=== PATIENT | male | born 1930 | race Caucasian/White ===

== ENCOUNTER 2016-04-12 11:03 | Emergency (ER) | payer MEDICARE, OTHER ==
[2016-04-12] MEDS ORDERED: MECLIZINE 12.5 MG TAB As Ordered ONE (12:06)
[2016-04-12 12:26] LABS: BASO % 0.5 % (0.0-1.0); EOS # 0.3 K/mm3 (0.0-0.50); EOS % 5.7 % (0.0-3.0); LARGE UNSTAINED CELL # 0.3 K/mm3 (0.0-0.4); LARGE UNSTAINED CELL % 4.7 % (0.0-4.0); LYMPH # 0.6 K/mm3 (1.5-4.5); LYMPH % 9.4 % (24.0-44.0); MEAN CORPUSCULAR HEMOGLOBIN 31.4 pg (27.0-33.0); MEAN CORPUSCULAR HGB CONC 33.6 g/dl (32.0-36.5); MEAN CORPUSCULAR VOLUME 93.4 fl (80.0-96.0); MONO # 0.5 K/mm3 (0.0-0.8); MONO % 8.3 % (0.0-5.0); NEUTROPHILS # 4.2 K/mm3 (1.8-7.7); NEUTROPHILS % 71.4 % (36.0-66.0); PLATELET COUNT, AUTOMATED 278 k/mm3 (150-450); RED CELL DISTRIBUTION WIDTH 12.6 % (11.5-14.5); WHITE BLOOD COUNT 5.8 K/mm3 (4.0-10.0)
[2016-04-12 12:31] LABS: ANION GAP 8 MEQ/L (8-16); BLOOD UREA NITROGEN 14 MG/DL (7-18); CALCIUM LEVEL 9.1 MG/DL (8.8-10.2); CARBON DIOXIDE LEVEL 27 MEQ/L (21-32); CHLORIDE LEVEL 108 MEQ/L (98-107); CREATININE FOR GFR 0.85 MG/DL (0.70-1.30); GLOMERULAR FILTRATION RATE > 60.0 (>35); GLUCOSE, FASTING 102 MG/DL (83-110); POTASSIUM SERUM 3.8 MEQ/L (3.5-5.1); SODIUM LEVEL 143 MEQ/L (136-145)
--- NOTE | 2016-04-12 14:41 | REP ---
CT brain without contrast 04/12/2016 Indication: Dizziness Comparison: None Findings: There is mild generalized cerebral volume loss. Small amount of periventricular and subcortical white matter hypodensities are present bilaterally consistent with chronic small vessel ischemic disease. There is no intracranial hemorrhage or extra-axial fluid collection. There is no midline shift or mass effect. The skull is without fracture. There are moderate bilateral carotid siphon calcifications and moderate calcification in distal left vertebral artery . Visualized portions of paranasal sinuses and mastoid sinuses are clear Impression 1. Mild generalized cerebral volume loss with mild chronic small vessel ischemic disease. No acute intracranial pathology or hemorrhage 2. Moderate bilateral carotid siphon calcifications, and moderate calcification in distal left vertebral artery Signed by Mel Carlson MD 04/12/2016 12:29 P
--- NOTE | 2016-04-12 15:58 | EDDOCDS ---
Nurse's Notes [facility] Name: Scott Child Age: 85 yrs Sex: Male : 1930 Arrival Date: 04/12/2016 Time: 11:03 Bed 19 Private MD: OLIVIA Prince Diagnosis: Other peripheral vertigo Presentation: 04/12 11:16 Presenting complaint: Patient states: felt dizzy during nite last night - states that j room was spinning around him. today feels SOB - denies chest pain. + cough. still feels dizzy. has hx of anxiety - states different than usual anxiety attack. Adult Sepsis Screening: The patient does not have new or worsening altered mentation. Patient's respiratory rate is less than 22. Systolic blood pressure is greater than 100. Patient has a qSOFA score of 0- Negative Sepsis Screen. Suicide/Homicide risk assessment- the patient denies having any suicidal and/or homicidal ideations and does not present with any other emotional, behavioral or mental health complaints. Status: Patient is not a counseling services manager or dependent. Transition of care: patient was not received from another setting of care. Red Flag criteria, patient assessed and taken directly to a bed. 11:16 Acuity: MARIA FERNANDA Level 3 [facility] 11:16 Method Of Arrival: Walkin/Carried/Asstd [facility] Triage Assessment: 11:20 General: Appears in no apparent distress, comfortable, Behavior is anxious. Pain: bcj Denies pain. Neurological: Level of Consciousness is awake, alert, Oriented to person, place, time. Historical: - Allergies: IV Dye; - Home Meds: 1. amlodipine 5 mg Oral tab 1 tab once daily 2. aspirin 81 mg Oral chew 1 tab once daily 3. lovazepam 0.5mg twice a day 4. paroxetine HCl 40 mg Oral tab 1 tab once daily 5. multivitamin Oral tab 1 tablet daily - PMHx: Anxiety; B-cell lymphoma; Hypertension; - PSHx: lymph node resection; Cataract Surgery- Bilateral; Hernia repair- Left inguinal; Tonsillectomy; Adenoidectomy; - Social history: Smoking status: Patient states former smoker of tobacco. No barriers to communication noted, The patient speaks fluent Syriac, Speaks appropriately for age. - Family history: Not pertinent. - : The pt / caregiver states he / she is not on anticoagulants. Home medication list is obtained from the patient. - Exposure Risk Screening:: None identified. Screenin:00 Screening information is obtained from the patient. Fall risk: No risks identified. hs1 Assistance ADL's: requires no assistance with activities of daily living. Abuse/DV Screen: The patient / caregiver reports he/she is: not in a situation that causes fear, pain or injury. Nutritional screening: No deficits noted. Advance Directives: There is no active DNR order. home support is adequate. Assessment: 12:00 General: Appears in no apparent distress, comfortable, Behavior is appropriate for age, hs1 cooperative. Pain: Denies pain. Neurological: Level of Consciousness is awake, alert, obeys commands, Oriented to person, place, time, Cold Food Packer are equal bilaterally Moves all extremities. Speech is normal, Facial symmetry appears normal. Cardiovascular: Rhythm is sinus rhythm. Respiratory: Airway is patent Respiratory effort is even, unlabored. GI: No deficits noted. Derm: Skin is pink, warm & dry. normal. 13:31 General: Appears in no apparent distress, comfortable, Behavior is appropriate for age, hs1 cooperative. Pain: Denies pain. Neurological: Level of Consciousness is awake, alert, obeys commands, Oriented to person, place, time, Cold Food Packer are equal bilaterally Moves all extremities. Speech is normal, Facial symmetry appears normal, Reports ringing in ears. . 14:28 General: Appears in no apparent distress, comfortable, Behavior is appropriate for age, hs1 cooperative, eating lunch at present. Pt aware of plan to eat and then ambulate to see if he is able to tolerate it. . 15:25 General: Appears in no apparent distress, comfortable, Behavior is appropriate for age, jmb cooperative, Patient laying on stretcher with at bedside., NO voiced complaints at this time. . Neurological: Level of Consciousness is awake, alert, obeys commands, Oriented to person, place, time, Cold Food Packer are equal bilaterally Speech is normal, Facial symmetry appears normal, Facial symmetry: tongue is midline. Cardiovascular: Capillary refill < 3 seconds Heart tones present Pulses are all present. Rhythm is sinus rhythm No ectopy. Respiratory: Airway is patent Respiratory effort is even, unlabored, Respiratory pattern is regular, symmetrical, Breath sounds with crackles in left posterior lower lobe and right posterior lower lobe. GI: Abdomen is non- distended Bowel sounds present X 4 quads. Abd is soft X 4 quads. Derm: Skin is pink, warm & dry. Musculoskeletal: Range of motion intact in all extremities. 15:50 General: Patient ambulated to patient, gait steady. Patient denies vertigo at this b time. Informed Dr. Jackson pf patient ambulation. Dr. Jackson stated that patient can be discharged. . 15:55 General: Patient instructed on discharge instructions. Patient asked if there were any [facility] questions regarding discharge, patient stated no. IV discontinued per hospital policy. Patient signed discharge instructions. Patient discharged in stable condition. . Vital Signs: 11:05 BP 154 / 81; Pulse 72; Resp 18; Temp 97.3(O); Pulse Ox 96% ; Weight 81.65 kg (R); cmb Height 5 ft. 4 in. (162.56 cm) (R); Pain 0/10; 11:26 BP 156 / 72 (auto/); hs1 11:28 Pulse 70 MON; Pulse Ox 95% ; hs1 11:55 Pulse 68 MON; Pulse Ox 98% ; hs1 11:56 BP 151 / 72 (auto/); hs1 12:26 BP 150 / 68 (auto/); hs1 12:26 Pulse 64 MON; Resp 18; Pulse Ox 95% ; hs1 12:56 BP 153 / 74 (auto/); jmb 12:56 Pulse 70 MON; Pulse Ox 94% ; jmb 13:26 BP 152 / 77 (auto/); jmb 13:26 Pulse 66 MON; Pulse Ox 96% ; jmb 13:56 BP 151 / 74 (auto/); jmb 13:56 Pulse 68 MON; Pulse Ox 98% ; jmb 14:26 BP 168 / 74 (auto/); jmb 14:26 Pulse 68 MON; Pulse Ox 94% ; jmb 14:56 BP 163 / 72 (auto/); jmb 14:56 Pulse 66 MON; Pulse Ox 94% ; jmb 14:56 Resp 18; Temp 98.2(O); Pain 0/10; jmb 11:05 Body Mass Index 30.90 (81.65 kg, 162.56 cm) b Vitals: 11:05 Log In Time: April 12, 2016 at 11:02. cmb 11:05 RN notified that patient meets Red Flag criteria. cmb ED Course: 11:04 Patient visited by Lilly Coto. cmb 11:04 Suresh [facility] is Private Physician. cmb 11:04 Patient moved to Waiting cmb 11:09 RN notified that patient meets Red Flag criteria. cmb 11:16 Patient moved to 19 [facility] 11:19 Triage Initiated [facility] 11:21 Patient visited by Roe Dupree, SANT[place]AG[place]. [facility] 11:33 Patient visited by Hemal Rabago. dem1 11:33 EKG done. (by ED staff). Reviewed by Kailyn Verdugo MD. dem1 11:37 Kailyn Verdugo MD is Attending Physician. sd1 11:37 Patient visited by Kailyn Verdugo MD. sd1 12:00 Inserted saline lock: 20 gauge in left antecubital area and blood collected. The hs1 patient tolerated the procedure well. 12:01 The patient / caregiver is instructed regarding the plan of care and ED course. hs1 12:02 B-Type Natiuretic Peptide Sent. hs1 12:02 Basic Metabolic Profile Sent. hs1 12:02 CBC with Diff Sent. hs1 12:02 Cardiac Injury Profile Sent. hs1 12:02 Troponin Sent. hs1 12:08 [facility] Payment Agreement was scanned into [employer] and attached to record. mm15 12:10 Patient visited by Mamta Molina RN. hs1 12:46 Patient visited by Dedra Black, AGATA. ct3 13:18 Patient visited by Mamta Molina RN. hs1 14:24 Patient visited by Mamta Molina RN. hs1 14:56 Discontinued lock intact, bleeding controlled, pressure dressing applied, No jmb redness/swelling at site. No procedures done that require assistance. 15:08 CT Head Without Contrast Returned. EDMS 15:21 Suresh [facility] is Referral Physician. sd1 15:26 Patient visited by Alejandro Ledezma RN. jmb Administered Medications: 12:10 Drug: Meclizine 50 mg [meclizine 12.5 mg tablet (4 tabs)] Route: PO; hs1 Order Results: Lab Order: B-Type Natiuretic Peptide; SPEC'M 04/12/16 11:57 Test: BRAIN NATRIURETIC PEPTIDE; Value: 46.1; Range: <100; Units: PG/ML; Status: F Lab Order: Basic Metabolic Profile; SPEC04/12/16 11:57 Test: GLUCOSE, FASTING; Value: 102; Range: 83-110; Units: MG/DL; Status: F Test: BLOOD UREA NITROGEN; Value: 14; Range: 7-18; Units: MG/DL; Status: F Test: CREATININE FOR GFR; Value: 0.85; Range: 0.70-1.30; Units: MG/DL; Status: F Test: GLOMERULAR FILTRATION RATE; Value: > 60.0; Range: >35; Status: F Test: SODIUM LEVEL; Value: 143; Range: 136-145; Units: MEQ/L; Status: F Test: POTASSIUM SERUM; Value: 3.8; Range: 3.5-5.1; Units: MEQ/L; Status: F Test: CHLORIDE LEVEL; Value: 108; Range: 98-107; Abnormal: Above high normal; Units: MEQ/L; Status: F Test: CARBON DIOXIDE LEVEL; Value: 27; Range: 21-32; Units: MEQ/L; Status: F Test: ANION GAP; Value: 8; Range: 8-16; Units: MEQ/L; Status: F Test: CALCIUM LEVEL; Value: 9.1; Range: 8.8-10.2; Units: MG/DL; Status: F Test Note: ; Units are mL/min/1.73 m2 Chronic Kidney Disease Staging per NKF: Stage I & II GFR >=60 Normal to Mildly Decreased Stage III GFR 30-59 Moderately Decreased Stage IV GFR 15-29 Severely Decreased Stage V GFR <15 Very Little GFR Left ESRD GFR <15 on CLOTH HANDLER Lab Order: CBC with Diff; SPEC04/12/16 11:57 Test: WHITE BLOOD COUNT; Value: 5.8; Range: 4.0-10.0; Units: K/mm3; Status: F Test: RED BLOOD COUNT; Value: 4.47; Range: 4.30-6.10; Units: M/mm3; Status: F Test: HEMOGLOBIN; Value: 14.0; Range: 14.0-18.0; Units: g/dl; Status: F Test: HEMATOCRIT; Value: 41.7; Range: 42.0-52.0; Abnormal: Below low normal; Units: %; Status: F Test: MEAN CORPUSCULAR VOLUME; Value: 93.4; Range: 80.0-96.0; Units: fl; Status: F Test: MEAN CORPUSCULAR HEMOGLOBIN; Value: 31.4; Range: 27.0-33.0; Units: pg; Status: F Test: MEAN CORPUSCULAR HGB CONC; Value: 33.6; Range: 32.0-36.5; Units: g/dl; Status: F Test: RED CELL DISTRIBUTION WIDTH; Value: 12.6; Range: 11.5-14.5; Units: %; Status: F Test: PLATELET COUNT, AUTOMATED; Value: 278; Range: 150-450; Units: k/mm3; Status: F Test: NEUTROPHILS %; Value: 71.4; Range: 36.0-66.0; Abnormal: Above high normal; Units: %; Status: F Test: LYMPH %; Value: 9.4; Range: 24.0-44.0; Abnormal: Below low normal; Units: %; Status: F Test: MONO %; Value: 8.3; Range: 0.0-5.0; Abnormal: Above high normal; Units: %; Status: F Test: EOS %; Value: 5.7; Range: 0.0-3.0; Abnormal: Above high normal; Units: %; Status: F Test: BASO %; Value: 0.5; Range: 0.0-1.0; Units: %; Status: F Test: LARGE UNSTAINED CELL %; Value: 4.7; Range: 0.0-4.0; Abnormal: Above high normal; Units: %; Status: F Test: NEUTROPHILS #; Value: 4.2; Range: 1.8-7.7; Units: K/mm3; Status: F Test: LYMPH #; Value: 0.6; Range: 1.5-4.5; Abnormal: Below low normal; Units: K/mm3; Status: F Test: MONO #; Value: 0.5; Range: 0.0-0.8; Units: K/mm3; Status: F Test: EOS #; Value: 0.3; Range: 0.0-0.50; Units: K/mm3; Status: F Test: BASO #; Value: 0.0; Range: 0.0-0.2; Units: K/mm3; Status: F Test: LARGE UNSTAINED CELL #; Value: 0.3; Range: 0.0-0.4; Units: K/mm3; Status: F Lab Order: Cardiac Injury Profile; SPEC'M 04/12/16 11:57 Test: CPK CREATINE PHOSPHOKINASE; Value: 42; Range: 39-308; Units: U/L; Status: F Test: CK-MB VALUE MASS; Value: 1.0; Range: 0.0-3.6; Units: NG/ML; Status: F Test: MB/CK RELATIVE INDEX; Value: 2.38; Range: < OR =4; Status: F Test Note: ; DIAGNOSIS CRITERIA MMB ng/ml Relative Index (RI) NON-AMI < or = 5 N/A [place] ZONE > 5 < or = 4 AMI > 5 > 4 Lab Order: Troponin; SPEC'M 04/12/16 11:57 Test: TROPONIN I; Value: < 0.02; Range: < 0.10; Units: NG/ML; Status: F Test Note: ; Troponin I Reference Interval for [employer] LOCI: 99th Percentile= 0.00-0.045 ng/ml Risk Stratification: <= 0.10 ng/ml Decreased Risk for Adverse Clinical Events. 0.10-1.50 ng/ml Increased Risk for Adverse Clinical Events. Evaluation of additional criterion and/or repeat testing in 2-6 hours is suggested to rule out myocardial damage. >= 1.50 ng/ml Indicative of Myocardial Injury. Radiology Order: CT Head Without Contrast Test: CT Head Without Contrast REASON FOR EXAMINATION: dizzy; CT brain without contrast 04/12/2016; ; Indication: Dizziness; ; Comparison: None; ; Findings: There is mild generalized cerebral volume loss. Small amount of; periventricular and subcortical white matter hypodensities are present; bilaterally consistent with chronic small vessel ischemic disease.; ; There is no intracranial hemorrhage or extra-axial fluid collection. There is no; midline shift or mass effect.; ; The skull is without fracture. There are moderate bilateral carotid siphon; calcifications and moderate calcification in distal left vertebral artery .; ; Visualized portions of paranasal sinuses and mastoid sinuses are clear; ; Impression; 1. Mild generalized cerebral volume loss with mild chronic small vessel; ischemic disease. No acute intracranial pathology or hemorrhage; 2. Moderate bilateral carotid siphon calcifications, and moderate calcification; in distal left vertebral artery; ; ; Signed by; Mel Carlson MD 04/12/2016 12:29 P; Outcome: 15:21 Discharge ordered by Provider. sd1 15:57 Discharge Assessment: Patient awake and alert. obeys commands, Oriented to person, b place and time. Patient verbalized understanding of disposition instructions. Patient has no functional deficits. patient administered narcotics - no. 15:57 The following High Risk Discharge criteria are identified: None. Discharged to home [facility] ambulatory, with significant other. Condition: stable. Discharge instructions given to patient, Instructed on discharge instructions, follow up and referral plans. medication usage, Demonstrated understanding of instructions, medications, Pt was receptive of discharge instructions/ teaching. Prescriptions given X 2. No special radiology studies were completed. Property sent home with patient. 15:57 Patient left the ED. [facility] Signatures: Dispatcher [employer] EDNJ Kailyn Verdugo MD MD sd1 Roe Dupree, RN RN Mamta Eller, RN RN hs1 Dedra Black, PIPELINE ENGINEER PIPELINE ENGINEER ct3 Hemal Rabago dem1 Lilly Coto cmb Tawanna Ayala mm15 Alejandro Ledezma,RN RN mp MTDD
--- NOTE | 2016-04-12 15:58 | EDDOCDS ---
Physician Documentation [facility] Name: Scott Child Age: 85 yrs Sex: Male : 1930 Arrival Date: 04/12/2016 Time: 11:03 Bed 19 Private MD: SEVERIANO Prince Disposition: 04/12/16 15:21 Discharged to Home/Self Care. Impression: Other peripheral vertigo. - Condition is Stable. - Discharge Instructions: Benign Positional Vertigo. - Prescriptions for Meclizine 25 mg Oral Tablet - take 1 tablet by ORAL route every 8 hours As needed; 30 tablet. Fluticasone 50 mcg/actuation Nasal [place], Suspension - inhale 1 spray by INTRANASAL route 2 times per day; 1 bottle. - Medication Reconciliation, Local Pharmacy Hours form. - Follow up: SEVERIANO Prince; When: 1 - 2 days. - Problem is new. - Symptoms are resolved. Historical: - Allergies: IV Dye; - Home Meds: 1. amlodipine 5 mg Oral tab 1 tab once daily 2. aspirin 81 mg Oral chew 1 tab once daily 3. lovazepam 0.5mg twice a day 4. paroxetine HCl 40 mg Oral tab 1 tab once daily 5. multivitamin Oral tab 1 tablet daily - PMHx: Anxiety; B-cell lymphoma; Hypertension; - PSHx: lymph node resection; Cataract Surgery- Bilateral; Hernia repair- Left inguinal; Tonsillectomy; Adenoidectomy; - Social history: Smoking status: Patient states former smoker of tobacco. No barriers to communication noted, The patient speaks fluent Spanish, Speaks appropriately for age. - Family history: Not pertinent. - : The pt / caregiver states he / she is not on anticoagulants. Home medication list is obtained from the patient. - Exposure Risk Screening:: None identified. Vital Signs: 04/12 11:05 BP 154 / 81; Pulse 72; Resp 18; Temp 97.3(O); Pulse Ox 96% ; Weight 81.65 kg / 180.01 cmb lbs (R); Height 5 ft. 4 in. (162.56 cm) (R); Pain 0/10; 11:26 BP 156 / 72 (auto/); hs1 11:28 Pulse 70 MON; Pulse Ox 95% ; hs1 11:55 Pulse 68 MON; Pulse Ox 98% ; hs1 11:56 BP 151 / 72 (auto/); hs1 12:26 BP 150 / 68 (auto/); hs1 12:26 Pulse 64 MON; Resp 18; Pulse Ox 95% ; hs1 12:56 BP 153 / 74 (auto/); jmb 12:56 Pulse 70 MON; Pulse Ox 94% ; jmb 13:26 BP 152 / 77 (auto/); jmb 13:26 Pulse 66 MON; Pulse Ox 96% ; jmb 13:56 BP 151 / 74 (auto/); jmb 13:56 Pulse 68 MON; Pulse Ox 98% ; jmb 14:26 BP 168 / 74 (auto/); jmb 14:26 Pulse 68 MON; Pulse Ox 94% ; jmb 14:56 BP 163 / 72 (auto/); jmb 14:56 Pulse 66 MON; Pulse Ox 94% ; jmb 14:56 Resp 18; Temp 98.2(O); Pain 0/10; jmb 11:05 Body Mass Index 30.90 (81.65 kg, 162.56 cm) cmb MDM: 11:26 Bacteriologist Food/Pulse Ox/q 30 min VS ordered. sd1 11:26 IV Saline Lock ordered. sd1 11:26 Rhythm Strip to chart ordered. sd1 11:26 Undress patient appropriately for examination ordered. sd1 11:27 B-Type Natiuretic Peptide Ordered. EDMS 11:27 Basic Metabolic Profile Ordered. EDMS 11:27 CBC with Diff Ordered. EDMS 11:27 Cardiac Injury Profile Ordered. EDMS 11:27 Troponin Ordered. EDMS 11:27 portable chest Ordered. EDMS 11:28 ECG WITH READING ER PHYS+CARDIAG ordered. EDMS 11:49 Meclizine 50 mg PO once ordered. sd1 11:50 CT Head Without Contrast Ordered. EDMS 12:07 Financial registration complete. mm15 12:08 [facility] Payment Agreement was scanned into [employer] and attached to record. mm15 12:36 Basic Metabolic Profile Reviewed. sd1 12:36 CBC with Diff Reviewed. sd1 12:36 B-Type Natiuretic Peptide Reviewed. sd1 12:36 Cardiac Injury Profile Reviewed. sd1 12:36 Troponin Reviewed. sd1 13:47 REGULAR+DIET ordered. EDMS 13:54 Misc. Nursing Order ordered. sd1 15:16 CT Head Without Contrast Reviewed. sd1 Administered Medications: 12:10 Drug: Meclizine 50 mg [meclizine 12.5 mg tablet (4 tabs)] Route: PO; hs1 Signatures: Dispatcher [employer] Kailyn Frias MD MD sd1 Roe Dupree RN RN Tawanna Dominguez mm15 Alejandro Ledezma RN RN jmb Sherrill, Hannah RN hs1 The chart was reviewed and I authenticate all verbal orders and agree with the evaluation and treatment provided.Attachments: 12:08 [facility] Payment Agreement mm15 MTDD
--- NOTE | 2016-04-12 16:26 | REP ---
PORTABLE CHEST: AP portable view of the chest is performed. There is no consolidating infiltrate. There is linear bibasilar fibro atelectatic change. Heart is not enlarged. There is some tortuosity of the thoracic aorta. The mediastinal silhouette is otherwise unremarkable. IMPRESSION: Mild bibasilar fibro atelectatic change without acute infiltrate. Signed by Felix Villalpando MD 04/13/2016 05:08 P
--- NOTE | 2016-04-13 19:38 | ECGEPIP ---
Stationary ECG Study [facility] - ED Test Date: 2016-04-12 Pat Name: TILA PIZANO Department: Room: - Gender: M Special Distribution Clerk: ruby : 1930 Requested By: Kailyn Verdugo Order Number: [id number] Reading MD: Kailyn Verdugo Measurements Intervals [place] Rate: 64 P: 71 ID: [id number] QRS: -52 QRSD: 91 T: -1 QT: 366 QTc: 379 Interpretive Statements SINUS RHYTHM WITH SINUS ARRHYTHMIA POSSIBLE ANTERIOR MYOCARDIAL INFARCTION, OF INDETERMINATE AGE INFERIOR MYOCARDIAL INFARCTION, PROBABLY OLD NSTTW ABNORMALITY Electronically Signed On 04-13-2016 19:38:37 EST by Kailyn Verdugo
--- NOTE | 2016-04-14 16:58 | EDDOCDS ---
Physician Documentation [facility] Name: Scott Child Age: 85 yrs Sex: Male : 1930 Arrival Date: 04/12/2016 Time: 11:03 Bed 19 Private MD: SEVERIANO Prince Disposition: 04/12/16 15:21 Discharged to Home/Self Care. Impression: Other peripheral vertigo. - Condition is Stable. - Discharge Instructions: Benign Positional Vertigo. - Prescriptions for Meclizine 25 mg Oral Tablet - take 1 tablet by ORAL route every 8 hours As needed; 30 tablet. Fluticasone 50 mcg/actuation Nasal [place], Suspension - inhale 1 spray by INTRANASAL route 2 times per day; 1 bottle. - Medication Reconciliation, Local Pharmacy Hours form. - Follow up: SEVERIANO Prince; When: 1 - 2 days. - Problem is new. - Symptoms are resolved. Historical: - Allergies: IV Dye; - Home Meds: 1. amlodipine 5 mg Oral tab 1 tab once daily 2. aspirin 81 mg Oral chew 1 tab once daily 3. lovazepam 0.5mg twice a day 4. paroxetine HCl 40 mg Oral tab 1 tab once daily 5. multivitamin Oral tab 1 tablet daily - PMHx: Anxiety; B-cell lymphoma; Hypertension; - PSHx: lymph node resection; Cataract Surgery- Bilateral; Hernia repair- Left inguinal; Tonsillectomy; Adenoidectomy; - Social history: Smoking status: Patient states former smoker of tobacco. No barriers to communication noted, The patient speaks fluent Lithuanian, Speaks appropriately for age. - Family history: Not pertinent. - : The pt / caregiver states he / she is not on anticoagulants. Home medication list is obtained from the patient. - Exposure Risk Screening:: None identified. Vital Signs: 04/12 11:05 BP 154 / 81; Pulse 72; Resp 18; Temp 97.3(O); Pulse Ox 96% ; Weight 81.65 kg / 180.01 cmb lbs (R); Height 5 ft. 4 in. (162.56 cm) (R); Pain 0/10; 11:26 BP 156 / 72 (auto/); hs1 11:28 Pulse 70 MON; Pulse Ox 95% ; hs1 11:55 Pulse 68 MON; Pulse Ox 98% ; hs1 11:56 BP 151 / 72 (auto/); hs1 12:26 BP 150 / 68 (auto/); hs1 12:26 Pulse 64 MON; Resp 18; Pulse Ox 95% ; hs1 12:56 BP 153 / 74 (auto/); jmb 12:56 Pulse 70 MON; Pulse Ox 94% ; jmb 13:26 BP 152 / 77 (auto/); jmb 13:26 Pulse 66 MON; Pulse Ox 96% ; jmb 13:56 BP 151 / 74 (auto/); jmb 13:56 Pulse 68 MON; Pulse Ox 98% ; jmb 14:26 BP 168 / 74 (auto/); jmb 14:26 Pulse 68 MON; Pulse Ox 94% ; jmb 14:56 BP 163 / 72 (auto/); jmb 14:56 Pulse 66 MON; Pulse Ox 94% ; jmb 14:56 Resp 18; Temp 98.2(O); Pain 0/10; jmb 11:05 Body Mass Index 30.90 (81.65 kg, 162.56 cm) cmb MDM: 11:26 Deputy Director Of Finance/Pulse Ox/q 30 min VS ordered. sd1 11:26 IV Saline Lock ordered. sd1 11:26 Rhythm Strip to chart ordered. sd1 11:26 Undress patient appropriately for examination ordered. sd1 11:27 B-Type Natiuretic Peptide Ordered. EDMS 11:27 Basic Metabolic Profile Ordered. EDMS 11:27 CBC with Diff Ordered. EDMS 11:27 Cardiac Injury Profile Ordered. EDMS 11:27 Troponin Ordered. EDMS 11:27 portable chest Ordered. EDMS 11:28 ECG WITH READING ER PHYS+CARDIAG ordered. EDMS 11:49 Meclizine 50 mg PO once ordered. sd1 11:50 CT Head Without Contrast Ordered. EDMS 12:07 Financial registration complete. mm15 12:08 [facility] Payment Agreement was scanned into [employer] and attached to record. mm15 12:36 Basic Metabolic Profile Reviewed. sd1 12:36 CBC with Diff Reviewed. sd1 12:36 B-Type Natiuretic Peptide Reviewed. sd1 12:36 Cardiac Injury Profile Reviewed. sd1 12:36 Troponin Reviewed. sd1 13:47 REGULAR+DIET ordered. EDMS 13:54 Misc. Nursing Order ordered. sd1 15:16 CT Head Without Contrast Reviewed. sd1 04/13 09:43 T-Sheet-- Draft Copy was scanned into [employer] and attached to record. gb 09:44 ECG/EKG was scanned into [employer] and attached to record. gb 09:44 Trend VS was scanned into [employer] and attached to record. gb Administered Medications: 04/12 12:10 Drug: Meclizine 50 mg [meclizine 12.5 mg tablet (4 tabs)] Route: PO; hs1 Signatures: Dispatcher [employer] EDWA Kailyn Verdugo MD MD sd1 Roe Dupree, RN RN Princess Juárez, Reg Reg gb Tawanna Ayala mm15 Alejandro LedezmaRN RN Mamta Chaudhari RN hs1 The chart was reviewed and I authenticate all verbal orders and agree with the evaluation and treatment provided.Attachments: 12:08 [facility] Payment Agreement mm15 04/13 09:43 T-Sheet-- Draft Copy gb 09:44 ECG/EKG gb Chart Complete MTDD
--- NOTE | 2016-04-14 16:58 | EDDOCDS ---
Physician Documentation [facility] Name: Scott Child Age: 85 yrs Sex: Male : 1930 Arrival Date: 04/12/2016 Time: 11:03 Bed 19 Private MD: SEVERIANO Prince Disposition: 04/12/16 15:21 Discharged to Home/Self Care. Impression: Other peripheral vertigo. - Condition is Stable. - Discharge Instructions: Benign Positional Vertigo. - Prescriptions for Meclizine 25 mg Oral Tablet - take 1 tablet by ORAL route every 8 hours As needed; 30 tablet. Fluticasone 50 mcg/actuation Nasal [place], Suspension - inhale 1 spray by INTRANASAL route 2 times per day; 1 bottle. - Medication Reconciliation, Local Pharmacy Hours form. - Follow up: SEVERIANO Prince; When: 1 - 2 days. - Problem is new. - Symptoms are resolved. Historical: - Allergies: IV Dye; - Home Meds: 1. amlodipine 5 mg Oral tab 1 tab once daily 2. aspirin 81 mg Oral chew 1 tab once daily 3. lovazepam 0.5mg twice a day 4. paroxetine HCl 40 mg Oral tab 1 tab once daily 5. multivitamin Oral tab 1 tablet daily - PMHx: Anxiety; B-cell lymphoma; Hypertension; - PSHx: lymph node resection; Cataract Surgery- Bilateral; Hernia repair- Left inguinal; Tonsillectomy; Adenoidectomy; - Social history: Smoking status: Patient states former smoker of tobacco. No barriers to communication noted, The patient speaks fluent Amharic, Speaks appropriately for age. - Family history: Not pertinent. - : The pt / caregiver states he / she is not on anticoagulants. Home medication list is obtained from the patient. - Exposure Risk Screening:: None identified. Vital Signs: 04/12 11:05 BP 154 / 81; Pulse 72; Resp 18; Temp 97.3(O); Pulse Ox 96% ; Weight 81.65 kg / 180.01 cmb lbs (R); Height 5 ft. 4 in. (162.56 cm) (R); Pain 0/10; 11:26 BP 156 / 72 (auto/); hs1 11:28 Pulse 70 MON; Pulse Ox 95% ; hs1 11:55 Pulse 68 MON; Pulse Ox 98% ; hs1 11:56 BP 151 / 72 (auto/); hs1 12:26 BP 150 / 68 (auto/); hs1 12:26 Pulse 64 MON; Resp 18; Pulse Ox 95% ; hs1 12:56 BP 153 / 74 (auto/); jmb 12:56 Pulse 70 MON; Pulse Ox 94% ; jmb 13:26 BP 152 / 77 (auto/); jmb 13:26 Pulse 66 MON; Pulse Ox 96% ; jmb 13:56 BP 151 / 74 (auto/); jmb 13:56 Pulse 68 MON; Pulse Ox 98% ; jmb 14:26 BP 168 / 74 (auto/); jmb 14:26 Pulse 68 MON; Pulse Ox 94% ; jmb 14:56 BP 163 / 72 (auto/); jmb 14:56 Pulse 66 MON; Pulse Ox 94% ; jmb 14:56 Resp 18; Temp 98.2(O); Pain 0/10; jmb 11:05 Body Mass Index 30.90 (81.65 kg, 162.56 cm) cmb MDM: 11:26 Visual Specialist/Pulse Ox/q 30 min VS ordered. sd1 11:26 IV Saline Lock ordered. sd1 11:26 Rhythm Strip to chart ordered. sd1 11:26 Undress patient appropriately for examination ordered. sd1 11:27 B-Type Natiuretic Peptide Ordered. EDMS 11:27 Basic Metabolic Profile Ordered. EDMS 11:27 CBC with Diff Ordered. EDMS 11:27 Cardiac Injury Profile Ordered. EDMS 11:27 Troponin Ordered. EDMS 11:27 portable chest Ordered. EDMS 11:28 ECG WITH READING ER PHYS+CARDIAG ordered. EDMS 11:49 Meclizine 50 mg PO once ordered. sd1 11:50 CT Head Without Contrast Ordered. EDMS 12:07 Financial registration complete. mm15 12:08 [facility] Payment Agreement was scanned into [employer] and attached to record. mm15 12:36 Basic Metabolic Profile Reviewed. sd1 12:36 CBC with Diff Reviewed. sd1 12:36 B-Type Natiuretic Peptide Reviewed. sd1 12:36 Cardiac Injury Profile Reviewed. sd1 12:36 Troponin Reviewed. sd1 13:47 REGULAR+DIET ordered. EDMS 13:54 Misc. Nursing Order ordered. sd1 15:16 CT Head Without Contrast Reviewed. sd1 04/13 09:43 T-Sheet-- Draft Copy was scanned into [employer] and attached to record. gb 09:44 ECG/EKG was scanned into [employer] and attached to record. gb 09:44 Trend VS was scanned into [employer] and attached to record. gb Administered Medications: 04/12 12:10 Drug: Meclizine 50 mg [meclizine 12.5 mg tablet (4 tabs)] Route: PO; hs1 Signatures: Dispatcher [employer] EDID Kailyn Verdugo MD MD sd1 Roe Dupree, RN RN Princess Juárez, Reg Reg gb Tawanna Ayala mm15 Alejandro LedezmaRN RN Mamta Chaudhari RN hs1 The chart was reviewed and I authenticate all verbal orders and agree with the evaluation and treatment provided.Attachments: 12:08 [facility] Payment Agreement mm15 04/13 09:43 T-Sheet-- Draft Copy gb 09:44 ECG/EKG gb Chart Complete MTDD
--- NOTE | 2016-04-14 16:58 | EDDOCDS ---
Nurse's Notes [facility] Name: Tila Pizano Age: 85 yrs Sex: Male : 1930 Arrival Date: 04/12/2016 Time: 11:03 Bed 19 Private MD: OLIVIA Prince Diagnosis: Other peripheral vertigo Presentation: 04/12 11:16 Presenting complaint: Patient states: felt dizzy during nite last night - states that j room was spinning around him. today feels SOB - denies chest pain. + cough. still feels dizzy. has hx of anxiety - states different than usual anxiety attack. Adult Sepsis Screening: The patient does not have new or worsening altered mentation. Patient's respiratory rate is less than 22. Systolic blood pressure is greater than 100. Patient has a qSOFA score of 0- Negative Sepsis Screen. Suicide/Homicide risk assessment- the patient denies having any suicidal and/or homicidal ideations and does not present with any other emotional, behavioral or mental health complaints. Status: Patient is not a service dismantler or dependent. Transition of care: patient was not received from another setting of care. Red Flag criteria, patient assessed and taken directly to a bed. 11:16 Acuity: MARIA FERNANDA Level 3 [facility] 11:16 Method Of Arrival: Walkin/Carried/Asstd [facility] Triage Assessment: 11:20 General: Appears in no apparent distress, comfortable, Behavior is anxious. Pain: bcj Denies pain. Neurological: Level of Consciousness is awake, alert, Oriented to person, place, time. Historical: - Allergies: IV Dye; - Home Meds: 1. amlodipine 5 mg Oral tab 1 tab once daily 2. aspirin 81 mg Oral chew 1 tab once daily 3. lovazepam 0.5mg twice a day 4. paroxetine HCl 40 mg Oral tab 1 tab once daily 5. multivitamin Oral tab 1 tablet daily - PMHx: Anxiety; B-cell lymphoma; Hypertension; - PSHx: lymph node resection; Cataract Surgery- Bilateral; Hernia repair- Left inguinal; Tonsillectomy; Adenoidectomy; - Social history: Smoking status: Patient states former smoker of tobacco. No barriers to communication noted, The patient speaks fluent Arabic, Speaks appropriately for age. - Family history: Not pertinent. - : The pt / caregiver states he / she is not on anticoagulants. Home medication list is obtained from the patient. - Exposure Risk Screening:: None identified. Screenin:00 Screening information is obtained from the patient. Fall risk: No risks identified. hs1 Assistance ADL's: requires no assistance with activities of daily living. Abuse/DV Screen: The patient / caregiver reports he/she is: not in a situation that causes fear, pain or injury. Nutritional screening: No deficits noted. Advance Directives: There is no active DNR order. home support is adequate. Assessment: 12:00 General: Appears in no apparent distress, comfortable, Behavior is appropriate for age, hs1 cooperative. Pain: Denies pain. Neurological: Level of Consciousness is awake, alert, obeys commands, Oriented to person, place, time, Electronic Equipment Repairer are equal bilaterally Moves all extremities. Speech is normal, Facial symmetry appears normal. Cardiovascular: Rhythm is sinus rhythm. Respiratory: Airway is patent Respiratory effort is even, unlabored. GI: No deficits noted. Derm: Skin is pink, warm & dry. normal. 13:31 General: Appears in no apparent distress, comfortable, Behavior is appropriate for age, hs1 cooperative. Pain: Denies pain. Neurological: Level of Consciousness is awake, alert, obeys commands, Oriented to person, place, time, Electronic Equipment Repairer are equal bilaterally Moves all extremities. Speech is normal, Facial symmetry appears normal, Reports ringing in ears. . 14:28 General: Appears in no apparent distress, comfortable, Behavior is appropriate for age, hs1 cooperative, eating lunch at present. Pt aware of plan to eat and then ambulate to see if he is able to tolerate it. . 15:25 General: Appears in no apparent distress, comfortable, Behavior is appropriate for age, jmb cooperative, Patient laying on stretcher with at bedside., NO voiced complaints at this time. . Neurological: Level of Consciousness is awake, alert, obeys commands, Oriented to person, place, time, Electronic Equipment Repairer are equal bilaterally Speech is normal, Facial symmetry appears normal, Facial symmetry: tongue is midline. Cardiovascular: Capillary refill < 3 seconds Heart tones present Pulses are all present. Rhythm is sinus rhythm No ectopy. Respiratory: Airway is patent Respiratory effort is even, unlabored, Respiratory pattern is regular, symmetrical, Breath sounds with crackles in left posterior lower lobe and right posterior lower lobe. GI: Abdomen is non- distended Bowel sounds present X 4 quads. Abd is soft X 4 quads. Derm: Skin is pink, warm & dry. Musculoskeletal: Range of motion intact in all extremities. 15:50 General: Patient ambulated to patient, gait steady. Patient denies vertigo at this b time. Informed Dr. Jackson pf patient ambulation. Dr. Jackson stated that patient can be discharged. . 15:55 General: Patient instructed on discharge instructions. Patient asked if there were any [facility] questions regarding discharge, patient stated no. IV discontinued per hospital policy. Patient signed discharge instructions. Patient discharged in stable condition. . Vital Signs: 11:05 BP 154 / 81; Pulse 72; Resp 18; Temp 97.3(O); Pulse Ox 96% ; Weight 81.65 kg (R); cmb Height 5 ft. 4 in. (162.56 cm) (R); Pain 0/10; 11:26 BP 156 / 72 (auto/); hs1 11:28 Pulse 70 MON; Pulse Ox 95% ; hs1 11:55 Pulse 68 MON; Pulse Ox 98% ; hs1 11:56 BP 151 / 72 (auto/); hs1 12:26 BP 150 / 68 (auto/); hs1 12:26 Pulse 64 MON; Resp 18; Pulse Ox 95% ; hs1 12:56 BP 153 / 74 (auto/); jmb 12:56 Pulse 70 MON; Pulse Ox 94% ; jmb 13:26 BP 152 / 77 (auto/); jmb 13:26 Pulse 66 MON; Pulse Ox 96% ; jmb 13:56 BP 151 / 74 (auto/); jmb 13:56 Pulse 68 MON; Pulse Ox 98% ; jmb 14:26 BP 168 / 74 (auto/); jmb 14:26 Pulse 68 MON; Pulse Ox 94% ; jmb 14:56 BP 163 / 72 (auto/); jmb 14:56 Pulse 66 MON; Pulse Ox 94% ; jmb 14:56 Resp 18; Temp 98.2(O); Pain 0/10; jmb 11:05 Body Mass Index 30.90 (81.65 kg, 162.56 cm) b Vitals: 11:05 Log In Time: April 12, 2016 at 11:02. cmb 11:05 RN notified that patient meets Red Flag criteria. cmb ED Course: 11:04 Patient visited by Lilly Coto. cmb 11:04 Suresh [facility] [place] is Private Physician. cmb 11:04 Patient moved to Waiting cmb 11:09 RN notified that patient meets Red Flag criteria. cmb 11:16 Patient moved to 19 [facility] 11:19 Triage Initiated [facility] 11:21 Patient visited by Roe Dupree, RN. [facility] 11:33 Patient visited by Hemal Rabago. dem1 11:33 EKG done. (by ED staff). Reviewed by Kailyn Verdugo MD. dem1 11:37 Kailyn Verdugo MD is Attending Physician. sd1 11:37 Patient visited by Kailyn Verdugo MD. sd1 12:00 Inserted saline lock: 20 gauge in left antecubital area and blood collected. The hs1 patient tolerated the procedure well. 12:01 The patient / caregiver is instructed regarding the plan of care and ED course. hs1 12:02 B-Type Natiuretic Peptide Sent. hs1 12:02 Basic Metabolic Profile Sent. hs1 12:02 CBC with Diff Sent. hs1 12:02 Cardiac Injury Profile Sent. hs1 12:02 Troponin Sent. hs1 12:08 [facility] Payment Agreement was scanned into [employer] and attached to record. mm15 12:10 Patient visited by Mamta Molina RN. hs1 12:46 Patient visited by Dedra Black, AGATA. ct3 13:18 Patient visited by Mamta Molina RN. hs1 14:24 Patient visited by Mamta Molina RN. hs1 14:56 Discontinued lock intact, bleeding controlled, pressure dressing applied, No jmb redness/swelling at site. No procedures done that require assistance. 15:08 CT Head Without Contrast Returned. EDMS 15:21 Suresh [facility] [place] Referral Physician. sd1 15:26 Patient visited by Alejandro Ledezma RN. jmb 16:37 portable chest Returned. EDMS 04 09:43 T-Sheet-- Draft Copy was scanned into [employer] and attached to record. gb 09:44 ECG/EKG was scanned into [employer] and attached to record. gb 09:44 Trend VS was scanned into [employer] and attached to record. 20:05 EKG-ADULT Returned. EDMS Administered Medications: 04/12 12:10 Drug: Meclizine 50 mg [meclizine 12.5 mg tablet (4 tabs)] Route: PO; hs1 Attachments: 09:44 Trend VS gb Order Results: Lab Order: B-Type Natiuretic Peptide; SPEC'M 04/12/16 11:57 Test: BRAIN NATRIURETIC PEPTIDE; Value: 46.1; Range: <100; Units: PG/ML; Status: F Lab Order: Basic Metabolic Profile; SPEC'M 04/12/16 11:57 Test: GLUCOSE, FASTING; Value: 102; Range: 83-110; Units: MG/DL; Status: F Test: BLOOD UREA NITROGEN; Value: 14; Range: 7-18; Units: MG/DL; Status: F Test: CREATININE FOR GFR; Value: 0.85; Range: 0.70-1.30; Units: MG/DL; Status: F Test: GLOMERULAR FILTRATION RATE; Value: > 60.0; Range: >35; Status: F Test: SODIUM LEVEL; Value: 143; Range: 136-145; Units: MEQ/L; Status: F Test: POTASSIUM SERUM; Value: 3.8; Range: 3.5-5.1; Units: MEQ/L; Status: F Test: CHLORIDE LEVEL; Value: 108; Range: 98-107; Abnormal: Above high normal; Units: MEQ/L; Status: F Test: CARBON DIOXIDE LEVEL; Value: 27; Range: 21-32; Units: MEQ/L; Status: F Test: ANION GAP; Value: 8; Range: 8-16; Units: MEQ/L; Status: F Test: CALCIUM LEVEL; Value: 9.1; Range: 8.8-10.2; Units: MG/DL; Status: F Test Note: ; Units are mL/min/1.73 m2 Chronic Kidney Disease Staging per NKF: Stage I & II GFR >=60 Normal to Mildly Decreased Stage III GFR 30-59 Moderately Decreased Stage IV GFR 15-29 Severely Decreased Stage V GFR <15 Very Little GFR Left ESRD GFR <15 on RESEARCH EDITOR Lab Order: CBC with Diff; SPEC'M 04/12/16 11:57 Test: WHITE BLOOD COUNT; Value: 5.8; Range: 4.0-10.0; Units: K/mm3; Status: F Test: RED BLOOD COUNT; Value: 4.47; Range: 4.30-6.10; Units: M/mm3; Status: F Test: HEMOGLOBIN; Value: 14.0; Range: 14.0-18.0; Units: g/dl; Status: F Test: HEMATOCRIT; Value: 41.7; Range: 42.0-52.0; Abnormal: Below low normal; Units: %; Status: F Test: MEAN CORPUSCULAR VOLUME; Value: 93.4; Range: 80.0-96.0; Units: fl; Status: F Test: MEAN CORPUSCULAR HEMOGLOBIN; Value: 31.4; Range: 27.0-33.0; Units: pg; Status: F Test: MEAN CORPUSCULAR HGB CONC; Value: 33.6; Range: 32.0-36.5; Units: g/dl; Status: F Test: RED CELL DISTRIBUTION WIDTH; Value: 12.6; Range: 11.5-14.5; Units: %; Status: F Test: PLATELET COUNT, AUTOMATED; Value: 278; Range: 150-450; Units: k/mm3; Status: F Test: NEUTROPHILS %; Value: 71.4; Range: 36.0-66.0; Abnormal: Above high normal; Units: %; Status: F Test: LYMPH %; Value: 9.4; Range: 24.0-44.0; Abnormal: Below low normal; Units: %; Status: F Test: MONO %; Value: 8.3; Range: 0.0-5.0; Abnormal: Above high normal; Units: %; Status: F Test: EOS %; Value: 5.7; Range: 0.0-3.0; Abnormal: Above high normal; Units: %; Status: F Test: BASO %; Value: 0.5; Range: 0.0-1.0; Units: %; Status: F Test: LARGE UNSTAINED CELL %; Value: 4.7; Range: 0.0-4.0; Abnormal: Above high normal; Units: %; Status: F Test: NEUTROPHILS #; Value: 4.2; Range: 1.8-7.7; Units: K/mm3; Status: F Test: LYMPH #; Value: 0.6; Range: 1.5-4.5; Abnormal: Below low normal; Units: K/mm3; Status: F Test: MONO #; Value: 0.5; Range: 0.0-0.8; Units: K/mm3; Status: F Test: EOS #; Value: 0.3; Range: 0.0-0.50; Units: K/mm3; Status: F Test: BASO #; Value: 0.0; Range: 0.0-0.2; Units: K/mm3; Status: F Test: LARGE UNSTAINED CELL #; Value: 0.3; Range: 0.0-0.4; Units: K/mm3; Status: F Lab Order: Cardiac Injury Profile; SPEC'M 04/12/16 11:57 Test: CPK CREATINE PHOSPHOKINASE; Value: 42; Range: 39-308; Units: U/L; Status: F Test: CK-MB VALUE MASS; Value: 1.0; Range: 0.0-3.6; Units: NG/ML; Status: F Test: MB/CK RELATIVE INDEX; Value: 2.38; Range: < OR =4; Status: F Test Note: ; DIAGNOSIS CRITERIA MMB ng/ml Relative Index (RI) NON-AMI < or = 5 N/A [place] > 5 < or = 4 AMI > 5 > 4 Lab Order: Troponin; SPEC'M 04/12/16 11:57 Test: TROPONIN I; Value: < 0.02; Range: < 0.10; Units: NG/ML; Status: F Test Note: ; Troponin I Reference Interval for [employer] LOCI: 99th Percentile= 0.00-0.045 ng/ml Risk Stratification: <= 0.10 ng/ml Decreased Risk for Adverse Clinical Events. 0.10-1.50 ng/ml Increased Risk for Adverse Clinical Events. Evaluation of additional criterion and/or repeat testing in 2-6 hours is suggested to rule out myocardial damage. >= 1.50 ng/ml Indicative of Myocardial Injury. Radiology Order: portable chest Test: portable chest REASON FOR EXAMINATION: Chest Pain; PORTABLE CHEST:; ; AP portable view of the chest is performed. There is no consolidating infiltrate.; There is linear bibasilar fibro atelectatic change. Heart is not enlarged. There; is some tortuosity of the thoracic aorta. The mediastinal silhouette is otherwise; unremarkable.; ; IMPRESSION:; ; Mild bibasilar fibro atelectatic change without acute infiltrate.; ; ; Signed by; Felix Villalpando MD 04/13/2016 05:08 P; Radiology Order: EKG-ADULT Test: EKG-ADULT REASON FOR EXAMINATION: Chest Pain; Stationary ECG Study; [facility] - ED; ; Test Date: 2016-04-12; Pat Name: TILA PIZANO Department:; Room: -; Gender: M Purchase Price Analyst: dm; : 1930 Requested By: Kailyn Verdugo; Order Number: [id number] Reading MD: Kailyn Verdugo; Measurements; Intervals [place]; Rate: 64 P: 71; [place]: 172 QRS: -52; QRSD: 91 T: -1; QT: 366; QTc: 379; Interpretive Statements; SINUS RHYTHM WITH SINUS ARRHYTHMIA; POSSIBLE ANTERIOR MYOCARDIAL INFARCTION, OF INDETERMINATE AGE; INFERIOR MYOCARDIAL INFARCTION, PROBABLY OLD; NSTTW ABNORMALITY; ; Electronically Signed On 04-13-2016 19:38:37 EST by Kailyn Verdugo; Radiology Order: CT Head Without Contrast Test: CT Head Without Contrast REASON FOR EXAMINATION: dizzy; CT brain without contrast 04/12/2016; ; Indication: Dizziness; ; Comparison: None; ; Findings: There is mild generalized cerebral volume loss. Small amount of; periventricular and subcortical white matter hypodensities are present; bilaterally consistent with chronic small vessel ischemic disease.; ; There is no intracranial hemorrhage or extra-axial fluid collection. There is no; midline shift or mass effect.; ; The skull is without fracture. There are moderate bilateral carotid siphon; calcifications and moderate calcification in distal left vertebral artery .; ; Visualized portions of paranasal sinuses and mastoid sinuses are clear; ; Impression; 1. Mild generalized cerebral volume loss with mild chronic small vessel; ischemic disease. No acute intracranial pathology or hemorrhage; 2. Moderate bilateral carotid siphon calcifications, and moderate calcification; in distal left vertebral artery; ; ; Signed by; Mel Carlson MD 04/12/2016 12:29 P; Outcome: 04/12 15:21 Discharge ordered by Provider. sd1 15:57 Discharge Assessment: Patient awake and alert. obeys commands, Oriented to person, b place and time. Patient verbalized understanding of disposition instructions. Patient has no functional deficits. patient administered narcotics - no. 15:57 The following High Risk Discharge criteria are identified: None. Discharged to home [facility] ambulatory, with significant other. Condition: stable. Discharge instructions given to patient, Instructed on discharge instructions, follow up and referral plans. medication usage, Demonstrated understanding of instructions, medications, Pt was receptive of discharge instructions/ teaching. Prescriptions given X 2. No special radiology studies were completed. Property sent home with patient. 15:57 Patient left the ED. [facility] Signatures: Dispatcher [employer] EDMS Kailyn Verdugo MD MD sd1 Roe Dupree, RN RN Princess Juárez, Reg Reg Mamta Molina RN RN hs1 Dedra Black, ARRT TECHNOLOGIST ARRT TECHNOLOGIST ct3 Hemal Rabago dem1 Lilly Coto b Tawanna Ayala mm15 Alejandro Ledezma,RN RN mp Chart Complete [facility]
== END 2016-04-12 15:57 | disposition home or self-care (01) ==
LOC: M ED 11:03
DX: H81.49 Vertigo of central origin, unspecified ear (principal); J06.9 Acute upper respiratory infection, unspecified; F41.9 Anxiety disorder, unspecified; C85.10 Unspecified B-cell lymphoma, unspecified site; I10 Essential (primary) hypertension; Z79.82 Long term (current) use of aspirin; Z79.899 Other long term (current) drug therapy; R06.02 Shortness of breath

== ENCOUNTER 2016-08-30 07:52 | Emergency (ER) | payer MEDICARE, OTHER ==
[~2016-08-30] VITALS: Ht 177.8 cm; Wt 81.6 kg
[2016-08-30] MEDS ORDERED: ASPI81CH PO (08:13)
[2016-08-30] MEDS ORDERED: PARO40TA2 PO (08:13)
[2016-08-30] MEDS ORDERED: ALEV220C2 PO (08:13)
[2016-08-30] MEDS ORDERED: AMLO5TAB2 PO (08:13)
[2016-08-30] MEDS ORDERED: MULT1TAB18 PO (08:13)
[2016-08-30 08:56] LABS: BASO % 0.7 % (0.0-1.0); EOS # 0.2 K/mm3 (0.0-0.50); LARGE UNSTAINED CELL # 0.2 K/mm3 (0.0-0.4); LARGE UNSTAINED CELL % 3.2 % (0.0-4.0); LYMPH # 0.7 K/mm3 (1.5-4.5); LYMPH % 11.1 % (24.0-44.0); MEAN CORPUSCULAR HEMOGLOBIN 32.7 pg (27.0-33.0); MEAN CORPUSCULAR HGB CONC 34.3 g/dl (32.0-36.5); MEAN CORPUSCULAR VOLUME 95.3 fl (80.0-96.0); MONO # 0.4 K/mm3 (0.0-0.8); MONO % 7.9 % (0.0-5.0); NEUTROPHILS # 3.7 K/mm3 (1.8-7.7); NEUTROPHILS % 74.1 % (36.0-66.0); PLATELET COUNT, AUTOMATED 271 k/mm3 (150-450); RED CELL DISTRIBUTION WIDTH 13.2 % (11.5-14.5)
[2016-08-30 09:11] LABS: ALBUMIN/GLOBULIN RATIO 1.25 (1.00-1.93); ALKALINE PHOSPHATASE 72 U/L (45-117); ALT/SGPT 24 U/L (12-78); ANION GAP 5 MEQ/L (8-16); AST/SGOT 16 U/L (15-37); BILIRUBIN,DIRECT < 0.1 MG/DL (0.0-0.2); BILIRUBIN,TOTAL 0.3 MG/DL (0.2-1.0); BLOOD UREA NITROGEN 12 MG/DL (7-18); CARBON DIOXIDE LEVEL 30 MEQ/L (21-32); CHLORIDE LEVEL 105 MEQ/L (98-107); CREATININE FOR GFR 0.83 MG/DL (0.70-1.30); GLOMERULAR FILTRATION RATE > 60.0 (>35); GLUCOSE, FASTING 103 MG/DL (83-110); SODIUM LEVEL 140 MEQ/L (136-145); TOTAL PROTEIN 7.2 GM/DL (6.4-8.2)
--- NOTE | 2016-08-30 09:31 | REP ---
Clinical: Abdominal pain. Technique: Upright view of the chest with supine and upright views of the abdomen and pelvis. Findings: Frontal upright view of the chest demonstrates no acute cardiopulmonary process or free air below the diaphragm to suspect pneumoperitoneum. Supine and upright views of the abdomen and pelvis demonstrate nonspecific bowel gas pattern without obstruction or perforation. No organomegaly. No abnormal calcifications. Skeletal structures normal for age. Impression: Nonspecific bowel gas pattern. Signed by Addy Gooden MD 08/30/2016 09:22 A
[2016-08-30] MEDS ORDERED: SIME1CAP PO (10:08)
[2016-08-30 10:16] VITALS: BP 168/82
--- NOTE | 2016-08-31 14:14 | ECGEPIP ---
Stationary ECG Study [facility] - ED Test Date: 2016-08-30 Pat Name: TILA PIZANO Department: Room: - Gender: M Services Advisor: sorin : 1930 Requested By: Kailyn Verdugo Order Number: [id number] Reading MD: Kailyn Verdugo Measurements Intervals [place] Rate: 71 P: 13 [place]: 169 QRS: -51 QRSD: 99 T: -7 QT: 376 QTc: 410 Interpretive Statements SINUS RHYTHM WITH SINUS ARRHYTHMIA PATTERN CONSISTENT WITH PULMONARY DISEASE INFERIOR MYOCARDIAL INFARCTION, PROBABLY OLD DELAYED R PROGRESSION INCREASED RATE 04/12/16 Electronically Signed On 08-31-2016 14:14:16 EDT by Kailyn Verdugo
== END 2016-08-30 10:36 | disposition home or self-care (01) ==
LOC: M ED 08:49
DX: R14.0 Abdominal distension (gaseous) (principal); R11.0 Nausea; G47.00 Insomnia, unspecified; F41.9 Anxiety disorder, unspecified; I10 Essential (primary) hypertension; Z85.72 Personal history of non-Hodgkin lymphomas; H33.8 Other retinal detachments; Z91.041 Radiographic dye allergy status; Z79.899 Other long term (current) drug therapy; Z79.82 Long term (current) use of aspirin; Z79.1 Long term (current) use of non-steroidal anti-inflammatories (NSAID)